=== PATIENT | male | born 1970 | race African-American/Black ===

== ENCOUNTER 2024-10-10 06:56 | Emergency (ER) | payer OTHER, SELFPAY ==
[2024-10-10 06:59] VITALS: BP 133/78; BMI 30.3
[2024-10-10 07:07] LABS: Glucose - Point of Care 90 mg/dl (70-99)
--- NOTE | 2024-10-10 07:10 | ED.GENMED ---
History of Present Illness
<Silvina John MD, Resident - Last Filed: 10/10/24 09:48>
General
Chief Complaint: Fainting/Passed Out
Source: patient
Exam Limitations: none
Time Seen by Provider: 10/10/24 07:08
Nursing documentation reviewed up to this point in time: agreed with
Travel History
Have you traveled to any high risk areas for coronavirus over the past 14 days?: No
Have you had any contact with someone who has COVID-19?: No
Do you have any symptoms of coronavirus? Fever > 100 degrees, chills, cough, shortness of breath, sore throat, loss of taste or smell, muscle aches, or headache?: No
History of Present Illness
History of Present Illness:
Mr. Self is a 54-year-old male with no significant past medical history presents to the hospital with an episode of syncope. Patient stated that he went to work in the morning today was standing in the meeting, felt sweating, has heart racing
and saw flashes and bright lights in front of his eyes and felt like he was passing out so he quickly lowered himself down to the bench and does not recall anything that happened after that. When he woke up he vaguely remembers his colleagues
asking if he is okay. He does not recall anything about the episode, no information about shaking limbs, rolling eyes, and tongue biting. No bowel or bladder incontinence or focal weakness after the episode. Patient states that he initially felt
sick with headaches, dizziness, and upper abdominal pain on after eating a hamburger from [employer]. His also had similar complaints from . His abdominal pain is a dull, aching pain located mostly in the upper and the central
part of his abdomen, 4/10 in intensity, associated with mild nausea but no emesis. His last bowel movement was on Thursday. He did not pass any flatus or bowel movement. Also states that he has not been eating much food since because of
his abdominal pain and nausea. He admits to be having associated intermittent headaches, throbbing present around the head, and dysphagia for solids, liquids. He denies having any associated blurring of vision, chills, subjective fevers, diarrhea,
chest pain, SOB, orthopnea, PND, blood in the stools, urinary symptoms (frequency hesitancy or burning micturition).
He never had any syncopal episodes before, and was never ill before.
He denies having any sick contacts or traveling outside of [place].
If applicable-neuro sx onset
Onset of symptoms known: No
Time pt last seen normal is known: No
Past History
<Silvina John MD, Resident - Last Filed: 10/10/24 09:48>
Past History
ED Past Medical History: None
ED Past Surgical History: None
Patient has exhibited threatening behavior?: No
PSI?: No
Social History
Tobacco: Non-smoker
Alcohol: Daily (2 glasses of beer/wine/vodka)
Drug: None
Personal:
Living: with family
Family History
Family History: Other (not pertinent)
Review of Systems
<Silvina John MD, Resident - Last Filed: 10/10/24 09:48>
Review of Systems
Allergies reviewed?: Yes
Constitutional: Reports fatigue
EENT: Reports no symptoms
Respiratory: Reports no symptoms; Denies cough, hemoptysis or trouble breathing
Cardiac: Reports diaphoresis, palpitations and syncope; Denies chest pain
ABD/GI: Reports abdominal pain and nausea; Denies vomiting, diarrhea, constipated, bloody stools or black stools
: Reports no symptoms
Musculoskeletal: Reports no symptoms
Skin: Reports no symptoms
Neurological: Reports headache
Phy Exam
<Silvina John MD, Resident - Last Filed: 10/10/24 09:48>
General Physical Exam
General Presentation: no apparent distress
General Skin: warm
General Habitus: normal
General Mental: alert
General Hydration: appears well hydrated
ENT Exam
ENT Exam: EOMI and TM's normal
Cardiovascular Exam
Cardiovascular Exam: regular rate/rhythm, no edema, no gallop, no murmur and normal peripheral pulses
Heart Sounds: normal
Pulmonary Exam
Pulmonary Exam: lungs clear, no respiratory distress, no rales, no crackles and no rhonchi
Gastrointestinal Exam
Gastrointestinal Exam: normal bowel sounds, non tender, soft, no organomegaly and non distended
Neurological Exam
Neurological Exam: alert, oriented x3, CN II-XII intact, no motor deficits, normal reflexs, no sensory deficits, speech normal and cerebellum intact
Skin Exam
Skin Exam: normal color
Psychiatric Exam
Psychiatric Exam: normal mood/affect
Course
<Silvina John MD, Resident - Last Filed: 10/10/24 09:48>
Orders/Labs/Results
Orders:
Orders
10/10/24 06:58
Electrocardiogram (*1) Urgent
Reason for Study: Syncope
EKG- Treatment ONCE
10/10/24 07:11
Complete Blood Count/With Diff Urgent
Comprehensive Metabolic Panel Urgent
Lipase Urgent
Troponin I Urgent
10/10/24 07:57
US Abdomen Complete/Upper Urgent
Comment:
Reason For Exam: elevated LFTs
10/10/24 07:58
0.9% Sodium Chloride 250 ml [Nss] 250 ml IV BOLUS
10/10/24 08:14
0.9% Sodium Chloride 500 ml [Nss] 500 ml IV BOLUS
10/10/24 09:21
Urinalysis Reflex To Culture Urgent
Date Specimen was Collected: 10/10/24
Time Specimen was Collected: 09:14
Abnormal Lab Results
10/10/24
07:11
RBC 3.81 L 10^6/uL
(4.70-6.10)
Hgb 11.6 L g/dL
(13.0-18.0)
Hct 34.3 L %
(39.0-52.0)
Abs Immat Gran (auto) 0.1 H 10^3/uL
(0-0.05)
Absolute Neuts (auto) 7.5 H 10^3/uL
(1.4-6.5)
Absolute Lymphs (auto) 0.7 L 10^3/uL
(1.2-3.4)
Absolute Monos (auto) 0.7 H 10^3/uL
(0.1-0.6)
Neutrophils % 78.8 H %
(42.2-75.2)
Lymphocytes % 7.0 L %
(20.5-51.1)
Sodium 134 L mmol/L
(135-145)
Chloride 97 L mmol/L
(98-107)
Glucose 105 H mg/dl
(70-99)
Total Bilirubin 1.8 H mg/dl
(0.2-1.3)
AST 80 H U/L
(17-59)
ALT 139 H U/L
(0-50)
Alkaline Phosphatase 319 H U/L
(38-126)
10/10/24 07:11
10/10/24 07:11
Vital Signs
Initial and Last Documented VS:
Initial Vital Signs
Temp Pulse Resp BP Pulse Ox
97.0 F 91 16 133/78 98
10/10/24 06:59 10/10/24 06:59 10/10/24 06:59 10/10/24 06:59 10/10/24 06:59
Last Documented Vital Signs
Temp Pulse Resp BP Pulse Ox
97.0 F 92 14 133/78 97
10/10/24 06:59 10/10/24 07:15 10/10/24 08:00 10/10/24 06:59 10/10/24 07:15
Jensenlt;Moises Corcoran, - Last Filed: 10/10/24 08:01>
Orders/Labs/Results
Orders:
Orders
10/10/24 06:58
Electrocardiogram (*1) Urgent
Reason for Study: Syncope
EKG- Treatment ONCE
10/10/24 07:11
Complete Blood Count/With Diff Urgent
Comprehensive Metabolic Panel Urgent
Lipase Urgent
Troponin I Urgent
10/10/24 07:57
US Abdomen Complete/Upper Urgent
Comment:
Reason For Exam: elevated LFTs
10/10/24 07:58
0.9% Sodium Chloride 250 ml [Nss] 250 ml IV BOLUS
10/10/24 08:14
0.9% Sodium Chloride 500 ml [Nss] 500 ml IV BOLUS
10/10/24 09:21
Urinalysis Reflex To Culture Urgent
Date Specimen was Collected: 10/10/24
Time Specimen was Collected: 09:14
Abnormal Lab Results
10/10/24
07:11
RBC 3.81 L 10^6/uL
(4.70-6.10)
Hgb 11.6 L g/dL
(13.0-18.0)
Hct 34.3 L %
(39.0-52.0)
Abs Immat Gran (auto) 0.1 H 10^3/uL
(0-0.05)
Absolute Neuts (auto) 7.5 H 10^3/uL
(1.4-6.5)
Absolute Lymphs (auto) 0.7 L 10^3/uL
(1.2-3.4)
Absolute Monos (auto) 0.7 H 10^3/uL
(0.1-0.6)
Neutrophils % 78.8 H %
(42.2-75.2)
Lymphocytes % 7.0 L %
(20.5-51.1)
Sodium 134 L mmol/L
(135-145)
Chloride 97 L mmol/L
(98-107)
Glucose 105 H mg/dl
(70-99)
Total Bilirubin 1.8 H mg/dl
(0.2-1.3)
AST 80 H U/L
(17-59)
ALT 139 H U/L
(0-50)
Alkaline Phosphatase 319 H U/L
(38-126)
10/10/24 07:11
10/10/24 07:11
Vital Signs
Initial and Last Documented VS:
Initial Vital Signs
Temp Pulse Resp BP Pulse Ox
97.0 F 91 16 133/78 98
10/10/24 06:59 10/10/24 06:59 10/10/24 06:59 10/10/24 06:59 10/10/24 06:59
Last Documented Vital Signs
Temp Pulse Resp BP Pulse Ox
97.0 F 92 14 133/78 97
10/10/24 06:59 10/10/24 07:15 10/10/24 08:00 10/10/24 06:59 10/10/24 07:15
<Silvina John MD, Resident - Last Filed: 10/10/24 09:48>
MDM/Problems Addressed
Differential Diagnosis Includes:
CVA, TIA, OR, PE, vasovagal syncope, dehydration, drug induced.
MDM/Problems Addressed:
Dehydration with IVF
<Silvina John MD, Resident - Last Filed: 10/10/24 09:48>
*Radiology
Radiology exam reviewed: preliminary read by ED provider and radiology read reviewed
*EKG
Interpreted by ED Provider?: Yes
EKG Intrepretation Date: 10/10/24
Interpretation: normal
Comparison EKG: no comparison EKG present
Rate: normal
Rhythm: sinus
[place]: indeterminate
Interval: normal QT interval and normal [place] interval
QRS Pattern: normal QRS
Ischemia: no ischemia
*Staff [employer] Officer Interpretation
Rate: normal
Interpretation: normal
Rhythm: PVC's
*Critical Care Note
Total Time (30-74mins, 75-104mins- exclusive of procedures): Not Applicable
<Silvina John MD, Resident - Last Filed: 10/10/24 09:48>
Update Note
Update Note:
Ultrasound of the abdomen showed no hepatobiliary abnormalities.
Patient is noted to have mild anemia-normocytic, and elevated liver enzymes with elevated total bilirubin.
Patient does not have a primary care physician referral to primary care physician given.
ED Attending Note
<Silvina John MD, Resident - Last Filed: 10/10/24 09:48>
-
Portions of this chart may have been created with voice recognition software.� Occasional wrong word or��sound alike� substitutions may have occurred due to the inherent limitations of voice recognition software.
<Moises Corcoran DO - Last Filed: 10/10/24 08:01>
ED Attending Note
Patient seen and examined by attending physician: Yes
I performed the substantive portion of visit, reviewed & personally made and approve the management plan that is documented in note by myself or MARIO.: Yes
ED Attending Note:
I agree with resident's note.
Patient presents after having a syncopal episode at work. Patient is been feeling unwell for the past 3 to 4 days which he attributes to a hamburger that he ate. He has had some abdominal discomfort, nausea and loose stools. No fever or chills.
Patient states that his urine output has been less because he has not been eating or drinking very much. No chest pain. No shortness of breath.
General: Awake, Alert, Oriented X3. No acute distress.
Vitals: unremarkable
Head: Atraumatic
Eyes: Pupils equal, EOMI
Throat: Airway intact, no exudates, mildly dry mucosa
Neck: Trachea midline
Lungs: Clear and equal b/l
Heart: Regular rate, no murmurs
Neuro: Nonfocal
Skin: Warm, dry, no rash
Extremities: pulses equal b/l, no edema
EKG: Normal sinus rhythm, normal intervals, no ischemic changes
Discharge Plan
Departure
Patient Disposition: Home (Routine Discharge)
Date of Disposition: 10/10/24
Time of Disposition: 09:45
Patient with high blood pressure during this ER visit?: Yes
Condition: Fair
Discharge Problem:
Vasovagal syncope, Transaminitis, Normocytic anemia
Instructions: Dizziness, Nonvertigo, (DC), BLOOD PRESSURE, Syncope (Fainting) (DC)
Referrals:
UNKNOWN - PT NOT,INTERVIEWE [Unknown Provider] -
Silvina John MD, Resident [Emergency Midlevel Provider] - Follow up in 1 week (Any PCP in our office at primary care residency practice.)
Activity Restrictions/Additional Instructions:
You were found to have normocytic anemia, elevated total bilirubin and liver enzymes.
Establish care with a primary care physician.
Repeat CBC and CMP recommended 1 once you see your PCP
Interventions
Interventions:
*Risk Screen - Suicide Last Done: 10/10/24 06:59
*General Assessment Last Done: 10/10/24 06:59
*Neglect/Abuse Screening Last Done: 10/10/24 06:59
ED- Fall Risk Assessment Last Done: 10/10/24 07:17
*ED COVID-19 Vaccine History Last Done: 10/10/24 07:18
ED- Cardiac Assessment Last Done: 10/10/24 07:17
ED- Neurological Assessment Last Done: 10/10/24 07:17
Discharge Date and Time
Print Language: LAO
[2024-10-10 07:20] LABS: % Basophils 0.3 % (0-2); % Eosinophils 5.8 % (0-6); % Immature Granulocytes 0.5 % (0-0.5); % Monocytes 7.6 % (1.7-9.3); % Neutrophils 78.8 % (42.2-75.2); Absolute Eosinophils 0.6 10^3/uL (0-0.7); Absolute Immature Granulocytes 0.1 10^3/uL (0-0.05); Absolute Lymphocytes 0.7 10^3/uL (1.2-3.4); Absolute Monocytes 0.7 10^3/uL (0.1-0.6); Absolute Neutrophils 7.5 10^3/uL (1.4-6.5); Hematocrit 34.3 % (39.0-52.0); Hemoglobin 11.6 g/dL (13.0-18.0); Mean Corp Hgb Conc. 33.8 g/dL (33.0-37.0); Mean Corpuscular Hgb 30.4 pg (27.0-31.0); Mean Platelet Volume 9.2 fL (7.4-10.4); Nucleated Red Blood Cells % 0 % (-); Platelet Count 186 10^3/uL (130-400); Red Blood Cell Count 3.81 10^6/uL (4.70-6.10); Red Cell Dist. Width 11.5 % (11.5-14.5); White Blood Cell Count 9.5 10^3/uL (4.8-10.8)
[2024-10-10 07:30] LABS: ALT (SGPT) 139 U/L (0-50); AST (SGOT) 80 U/L (17-59); Albumin 3.6 g/dl (3.5-5.0); Alkaline Phosphatase 319 U/L (38-126); Blood Urea Nitrogen 13 mg/dl (9-20); Calcium 8.6 mg/dl (8.4-10.2); Carbon Dioxide 28 mmol/L (22-30); Chloride 97 mmol/L (98-107); Estimated Creatinine Clearance 105 ml/min; Glucose 105 mg/dl (70-99); Lipase 73 U/L (23-300); Potassium 3.8 mmol/L (3.5-5.1); Sodium 134 mmol/L (135-145); Total Bilirubin 1.8 mg/dl (0.2-1.3); Total Protein 6.8 g/dl (6.3-8.2); eGFR > 60.00
[2024-10-10 07:42] LABS: Troponin I < 0.012 ng/ml
[2024-10-10 08:01] VITALS: BP 136/76
[2024-10-10] MEDS: NSS 500 IV (08:15)
[2024-10-10 09:53] LABS: Urine Albumin Trace (Neg - Trace); Urine Bilirubin 1+ (Negative); Urine Character Clear (Clear); Urine Color Yellow; Urine Glucose Negative (Negative); Urine Ketone Trace (Negative); Urine Leukocyte 1+ (Negative); Urine Nitrite Negative (Negative); Urine Occult Blood Negative (Negative); Urine Urobilinogen 3+ (Neg - 1+)
[2024-10-10 09:54] VITALS: BP 134/77
[2024-10-10 10:00] VITALS: BP 122/71
[2024-10-10 10:42] LABS: Urine Amorphous Seen; Urine Mucus Many; Urine Urothelial Cell 26-30 /LPF (FEW)
[2024-10-10 10:44] LABS: Urine Red Blood Cell 0-2 /HPF (0-2)
== END 2024-10-10 10:40 | disposition home or self-care (01) ==
LOC: EMR 06:56
PROVIDERS: Student in an Organized Health Care Education/Training Program; EMERGENCY PHYSICIAN Emergency Medicine
DX: D64.9 Anemia, unspecified (principal); R55 Syncope and collapse; R74.01 Elevation of levels of liver transaminase levels
CPT/HCPCS: 99284; 76700; 80053; 81003; 81015; 82962; 83690; 84484; 85025; 87086; 93005